=== PATIENT | male | born 1985 | race Caucasian/White ===

== ENCOUNTER 2023-07-24 18:07 | Emergency (ER) | payer SELFPAY ==
[~2023-07-24] VITALS: Ht 175.3 cm; Wt 79.0 kg
[2023-07-24 18:27] VITALS: BP 117/76; PULSE 77; RESP 16; TEMP 98.9; O2SAT 99
== END 2023-07-24 22:58 | disposition home or self-care (01) ==
LOC: ER 18:07
DX: M25.572 Pain in left ankle and joints of left foot (principal); Y08.89XA Assault by other specified means, initial encounter; Y93.89 Activity, other specified; Y92.89 Other specified places as the place of occurrence of the external cause; Y99.8 Other external cause status
CPT/HCPCS: 73610; 70450; 99284; Z7610